=== PATIENT | male | born 1995 | race Caucasian/White ===

== ENCOUNTER 2017-10-11 15:56 | Emergency (ER) | payer OTHER ==
[~2017-10-11] VITALS: Ht 177.8 cm; Wt 157.0 kg
[~2017-10-11 15:56] MED LIST: AUGM875 PO; LORT5TAB PO
[2017-10-11 15:58] VITALS: BP 173/90; PULSE 108; RESP 16; TEMP 98.4; O2SAT 96
--- NOTE | 2017-10-11 16:09 | PD ---
HPI Chief Complaint: Laceration/Skin Injury Time Seen by Provider: 16:09 Travel History International Travel<30 days: No Contact w/Intl Traveler<30days: No Traveled to known affect area: No History of Present Illness HPI 22-year-old male came to the emergency room after injuring his left hand while he was trying to got something in the garbage can. He slashed his right palm. He was bleeding significantly and went to the urgent care. Given the force of the bleeding the urgent care's concern was an arterial bleed in the wound was wrapped tightly and he was asked to come to the emergency room. Patient was slightly tachycardic upon arrival. He complains of slight dizziness but otherwise feeling okay. He does not recall his last tetanus shot. Patient is right-handed. [facility] Past Medical History Narrative Medical List of his past medical, surgical, social and family history is reviewed from the nursing note Developmental Delay: No Immunizations Current: Yes Social History Alcohol Use: No Tobacco Use: No Allergies-Medications (Allergen,Severity, Reaction): Coded Allergies: No Known Allergies (Unverified , 10/11/17) Comments No known drug allergies. Reported Meds & Prescriptions Reported Meds & Active Scripts Active Bacitracin Topical 500 Unit/Gm Oint 1 Applic TOPICAL BID Ibuprofen 600 Mg Tab 600 Mg PO Q6H PRN Keflex (Cephalexin) 500 Mg Cap 500 Mg PO Q12H 7 Days Narrative Medication List of his home medications reviewed from the nursing note. Review of Systems Except as stated in HPI: all other systems reviewed are Neg Physical Exam Narrative GENERAL: Awake, alert, obese, moderate distress SKIN: Focused skin assessment warm/dry. Left hand mid palmar crease on the ulnar aspect there is a 1 inch laceration. Once the dressing was taken down and bleeding was noticed to be controlled. There is good strength of the fourth and fifth finger on flexion against resistance. Sensation is intact. Cap refill is intact. HEAD: Atraumatic. Normocephalic. EYES: Pupils equal and round. No scleral icterus. No injection or drainage. ENT: No nasal bleeding or discharge. Mucous membranes pink and moist. NECK: Trachea midline. No JVD. CARDIOVASCULAR: Regular rate and rhythm. No murmur appreciated. RESPIRATORY: No accessory muscle use. Clear to auscultation. Breath sounds equal bilaterally. GASTROINTESTINAL: Abdomen soft, non-tender, nondistended. Hepatic and splenic margins not palpable. MUSCULOSKELETAL: No obvious deformities. No clubbing. No cyanosis. No edema. NEUROLOGICAL: Awake and alert. No obvious cranial nerve deficits. Motor grossly within normal limits. Normal speech. PSYCHIATRIC: Appropriate mood and affect; insight and judgment normal. Data Data Last Documented VS Vital Signs Date Time Temp Pulse Resp B/P (MAP) Pulse Ox O2 Delivery O2 Flow Rate FiO2 10/11/17 15:58 98.4 108 16 173/90 (117) 96 Orders Orders Lidocaine Pf 1% Inj (Xylocaine-Mpf 1% In (10/11/17 16:21) Hand, Complete ([id number]) (10/11/17 ) Tetanus/Diphtheria Tox Adult (Tetanus/Di (10/11/17 16:30) Ibuprofen (Motrin) (10/11/17 16:30) Ed Discharge Order (10/11/17 17:37) Cephalexin (Keflex) (10/11/17 17:45) MDM Medical Decision Making Medical Screen Exam Complete: Yes Emergency Medical Condition: Yes Medical Record Reviewed: Yes Differential Diagnosis Complex hand laceration Narrative Course 4:33 PM awaiting for the x-ray. Patient was given tetanus shot and pain medication. If the x-ray looks okay L clean the wound and repair the laceration. 5:38 PM the laceration repair was done by me. Please refer to my procedure note. Patient tolerated the procedure well. He was given instructions verbally as well as discharge patient. Procedures Procedure Narrative LACERATION LOCATION: Left palm LENGTH: 1 NUMBER OF STITCHES/MIGUEL: 10 stitches REPAIR: The area of the laceration was prepped with Betadine and sterilely draped. The laceration was infiltrated with 7 mL of 1% lidocaine. The wound was copiously irrigated and explored without evidence of foreign body, tendon injury or neurovascular injury. The wound was closed using 3-0 Ethilon. This was a single layer repair. A sterile dressing was applied. The patient was advised to keep the dressing clean and dry. Patient tolerated the procedure well. EKG Prior to Arrival: No Diagnosis Primary Impression: Complex hand laceration Additional Impression: Hand laceration Qualified Codes: S61.412A - Laceration without foreign body of left hand, initial encounter Referrals: Primary Care Physician 1 week Departure Forms: Tests/Procedures, Work Release Enter return to work date: Oct 13, 2017 Additional Instructions: Please return to the ER if condition worsens or any other new concerns. Otherwise return in 7 days to get the stitches taken out. Keep the wound clean and dry. Apply the ointment twice a day until the stitches are out. Take the medication as per the prescription direction. Med/Other Pt SpecificInfo: Prescription(s) given Scripts Bacitracin Topical (Bacitracin Topical) 500 Unit/Gm Oint 1 APPLIC TOPICAL BID for Infection, #30 GM 0 Refills Prov: Cici Gomez MD 10/11/17 Ibuprofen (Ibuprofen) 600 Mg Tab 600 MG PO Q6H Y for Pain/Inflammation, #40 TAB 0 Refills Prov: Cici Gomez MD 10/11/17 Cephalexin (Keflex) 500 Mg Cap 500 MG PO Q12H for Infection for 7 Days, #14 CAP 0 Refills Prov: Cici Gomez MD 10/11/17 Disposition: 01 DISCHARGE HOME Condition: Stable Cici Gomez MD Oct 11, 2017 16:09
[2017-10-11] MEDS ORDERED: LIDOCAINE HCL 1% PF 30 ML VIAL ONE (16:21)
[2017-10-11] MEDS ORDERED: IBUPROFEN 800 MG TAB PO ONE (16:30)
[2017-10-11] MEDS ORDERED: TETANUS/DIPHTHERIA TOXOID ADULT 0.5 ML VIAL IM ONE (16:30)
--- NOTE | 2017-10-11 16:48 | RADRPT ---
EXAM DATE: 10/11/2017 4:45 PM EDT AGE/SEX: 22 years / Male INDICATIONS: Patient has laceration to 5th MCPJ from accident at work. CLINICAL DATA: This is the patient's initial encounter. Patient reports that signs and symptoms have been present for 1 day and indicates a pain score of 3/10. MEDICAL/SURGICAL HISTORY: None. None. COMPARISON: No prior exams available for comparison. FINDINGS: Bony structures are intact without evidence of fracture or dislocation. There is no evidence of radio paque foreign body. Soft tissue swelling is seen along the lateral aspect of the hand. CONCLUSION: No evidence of acute bone injury or radiopaque foreign body. Electronically signed by: Germain Murillo MD 10/11/2017 4:47 PM EDT
[2017-10-11] MEDS ORDERED: CEPH-460 PO (17:41)
[2017-10-11] MEDS ORDERED: IBUP-232 PO (17:42)
[2017-10-11] MEDS ORDERED: CEPHALEXIN MONOHYDRATE 500 MG CAP PO ONE (17:45)
[2017-10-11] MEDS ORDERED: BACI500O9 TOPICAL (17:45)
== END 2017-10-11 18:07 | disposition home or self-care (01) ==
LOC: PHED 15:56
DX: S61.412A Laceration without foreign body of left hand, initial encounter (principal); W26.9XXA Contact with unspecified sharp object(s), initial encounter; Z23 Encounter for immunization
CPT/HCPCS: 12001; 73130; 90471; 90714

== ENCOUNTER 2017-10-19 14:26 | Emergency (ER) | payer OTHER ==
[~2017-10-19] VITALS: Ht 177.8 cm; Wt 160.0 kg
[~2017-10-19 14:26] MED LIST changes: -AUGM875 PO; +BACI500O9 TOPICAL; +CEPH-460 PO; +IBUP-232 PO; -LORT5TAB PO
[2017-10-19 14:30] VITALS: BP 128/61; PULSE 83; RESP 16; TEMP 98.8; O2SAT 97
--- NOTE | 2017-10-19 14:41 | PD ---
HPI Chief Complaint: Wound/Suture/Staple Re-Check Time Seen by Provider: 14:31 Travel History International Travel<30 days: No Contact w/Intl Traveler<30days: No Traveled to known affect area: No History of Present Illness HPI 22-year-old male presents to the emergency department for suture removal to the left hand. Sutures are placed 8 days ago in the emergency department. He denies any complication. No erythema or drainage. He denies any pain. Mild severity. PFSH Past Medical History Medical History: Denies Significant Hx Developmental Delay: No Diminished Hearing: No Immunizations Current: Yes Influenza Vaccination: No ?: Not Past Surgical History Surgical History: No Previous Surgery Social History Alcohol Use: No Tobacco Use: No Substance Use: No Allergies-Medications (Allergen,Severity, Reaction): Coded Allergies: No Known Allergies (Unverified , 10/19/17) Reported Meds & Prescriptions Reported Meds & Active Scripts Active No Active Prescriptions or Reported Medications Review of Systems Except as stated in HPI: all other systems reviewed are Neg Physical Exam Narrative GENERAL: Well-nourished, well-developed male patient, ambulatory. Afebrile SKIN: Focused skin assessment warm/dry. Patient has healing laceration to the left volar hand without erythema or drainage. Sutures are intact. HEAD: Normocephalic. Atraumatic. EYES: No scleral icterus. No injection or drainage. RESPIRATORY:No accessory muscle use. MUSCULOSKELETAL: No cyanosis, or edema. Data Data Last Documented VS Vital Signs Date Time Temp Pulse Resp B/P (MAP) Pulse Ox O2 Delivery O2 Flow Rate FiO2 10/19/17 14:30 98.8 83 16 128/61 (83) 97 MDM Medical Decision Making Medical Screen Exam Complete: Yes Emergency Medical Condition: Yes Medical Record Reviewed: Yes Differential Diagnosis Suture removal versus dehiscence versus cellulitis Narrative Course 22-year-old male presents to the emergency department for suture removal. Sutures are removed without difficulty. There is slight dehiscence of the wound upon suture removal. Steri-Strips are placed. The patient was discharged in stable condition with instructions, including return instructions and follow up instructions. Diagnosis Primary Impression: Visit for suture removal Referrals: Primary Care Physician as needed Patient Instructions: General Instructions, Stitches Removal (ED) Additional Instructions: Try to not get Steri-Strips wet. They will fall off on their own. Follow-up with your primary care physician as needed. Return to the emergency department for any acute worsening of symptoms. Med/Other Pt SpecificInfo: No Change to Meds Scripts No Active Prescriptions or Reported Meds Disposition: 01 DISCHARGE HOME Condition: Stable RileyRanjana ARNP Oct 19, 2017 14:41
== END 2017-10-19 15:03 | disposition home or self-care (01) ==
LOC: PHEFT 14:26
DX: S61.412D Laceration without foreign body of left hand, subsequent encounter (principal); X58.XXXD Exposure to other specified factors, subsequent encounter; Z48.02 Encounter for removal of sutures
CPT/HCPCS: 99281